=== PATIENT | female | born 1965 | race Two or more races ===

== ENCOUNTER 2023-03-29 12:18 | Emergency (ER) | payer OTHER ==
[~2023-03-29] VITALS: Ht 152.4 cm; Wt 58.1 kg
== END 2023-03-29 16:01 | disposition home or self-care (01) ==
LOC: ER 12:18
DX: S01.01XA Laceration without foreign body of scalp, initial encounter (principal); W18.30XA Fall on same level, unspecified, initial encounter; Y93.9 Activity, unspecified; Y92.019 Unspecified place in single-family (private) house as the place of occurrence of the external cause; Y99.9 Unspecified external cause status; M70.22 Olecranon bursitis, left elbow

== ENCOUNTER 2023-04-11 14:28 | Emergency (ER) | payer OTHER ==
[~2023-04-11] VITALS: Ht 162.6 cm; Wt 58.1 kg
== END 2023-04-11 17:07 | disposition home or self-care (01) ==
LOC: ER 14:28
DX: Z48.02 Encounter for removal of sutures (principal)